=== PATIENT | male | born 1940 | race African-American/Black ===

== ENCOUNTER 2017-12-04 08:53 | Outpatient (CLI) | payer OTHER ==
[~2017-12-04 08:53] MED LIST: AMOX1TAB12 PO; ATIVAN1 M1 PO; CIPRO500 MG PO; CLEOCIN HCL300 MG PO; FOLIC ACID1 MG; GLUCOPHAGE XR750 MG; GLUCOTROL10 MG; LOTREL 5-20 MG1 CAP
== END 2017-12-04 08:59 | disposition home or self-care (01) ==
LOC: LAB 08:53
DX: D55.0 Anemia due to glucose-6-phosphate dehydrogenase [G6PD] deficiency (principal); D51.3 Other dietary vitamin B12 deficiency anemia; D63.8 Anemia in other chronic diseases classified elsewhere; C18.0 Malignant neoplasm of cecum; C61 Malignant neoplasm of prostate; E08.65 Diabetes mellitus due to underlying condition with hyperglycemia; I10 Essential (primary) hypertension; I73.89 Other specified peripheral vascular diseases; D50.8 Other iron deficiency anemias; D51.8 Other vitamin B12 deficiency anemias; E55.9 Vitamin D deficiency, unspecified; K90.89 Other intestinal malabsorption; R97.0 Elevated carcinoembryonic antigen [CEA]; R97.8 Other abnormal tumor markers

== ENCOUNTER → 2017-12-11 10:45 | Outpatient (CLI) | payer OTHER ==
[~2017-12-11 10:45] MED LIST changes: +FORTAMET1000 MG
== END | disposition home or self-care (01) ==
LOC: LAB 10:45 → EDBD 10:45
DX: Z12.11 Encounter for screening for malignant neoplasm of colon (principal); I11.9 Hypertensive heart disease without heart failure; Z85.46 Personal history of malignant neoplasm of prostate; E11.29 Type 2 diabetes mellitus with other diabetic kidney complication

== ENCOUNTER 2017-12-16 10:41 | Outpatient (CLI) | payer OTHER ==
[~2017-12-16 10:41] MED LIST changes: -FORTAMET1000 MG
[2017-12-17] MEDS ORDERED: FORTAMET1000 MG (07:47)
== END 2017-12-16 11:09 | disposition home or self-care (01) ==
LOC: LAB 10:41
DX: Z12.11 Encounter for screening for malignant neoplasm of colon (principal); I11.9 Hypertensive heart disease without heart failure; Z85.46 Personal history of malignant neoplasm of prostate; E11.29 Type 2 diabetes mellitus with other diabetic kidney complication

== ENCOUNTER → 2017-12-17 | Emergency (ER) | payer OTHER ==
[~2017-12-17] VITALS: Ht 180.3 cm; Wt 83.9 kg
[~2017-12-17] MED LIST changes: +FORTAMET1000 MG
== END | disposition home or self-care (01) ==
LOC: ER 07:08 → EMR PED 07:21 → ER 07:21
DX: N39.0 Urinary tract infection, site not specified (principal); N20.0 Calculus of kidney; R10.32 Left lower quadrant pain; R10.31 Right lower quadrant pain

== ENCOUNTER → 2017-12-28 11:46 | Outpatient (CLI) | payer OTHER | END | disposition home or self-care (01) | LOC: LAB 11:46 | DX: E11.51 Type 2 diabetes mellitus with diabetic peripheral angiopathy without gangrene (principal); Z12.11 Encounter for screening for malignant neoplasm of colon; E11.69 Type 2 diabetes mellitus with other specified complication ==

== ENCOUNTER 2017-12-29 11:42 | Outpatient (CLI) | payer OTHER | END 2017-12-29 11:45 | disposition home or self-care (01) | LOC: LAB 11:42 | DX: E11.51 Type 2 diabetes mellitus with diabetic peripheral angiopathy without gangrene (principal); E11.69 Type 2 diabetes mellitus with other specified complication; Z12.11 Encounter for screening for malignant neoplasm of colon ==

== ENCOUNTER 2018-02-09 10:38 | Emergency (ER) | payer OTHER ==
[~2018-02-09] VITALS: Ht 180.3 cm; Wt 84.4 kg
== END 2018-02-09 13:47 | disposition home or self-care (01) ==
LOC: ER 10:38 → EDBD 10:43 → ER 10:43
DX: M54.31 Sciatica, right side (principal); L13.0 Dermatitis herpetiformis

== ENCOUNTER → 2018-04-13 08:13 | Outpatient (CLI) | payer OTHER | END | disposition home or self-care (01) | LOC: LAB 08:13 | DX: D55.0 Anemia due to glucose-6-phosphate dehydrogenase [G6PD] deficiency (principal); D51.3 Other dietary vitamin B12 deficiency anemia; D63.8 Anemia in other chronic diseases classified elsewhere; C18.0 Malignant neoplasm of cecum; C61 Malignant neoplasm of prostate; E08.65 Diabetes mellitus due to underlying condition with hyperglycemia; I10 Essential (primary) hypertension; E73.8 Other lactose intolerance; D50.8 Other iron deficiency anemias; D51.8 Other vitamin B12 deficiency anemias; R97.0 Elevated carcinoembryonic antigen [CEA]; E78.4 Other hyperlipidemia; R91.1 Solitary pulmonary nodule; Z87.891 Personal history of nicotine dependence; A31.0 Pulmonary mycobacterial infection; B39.4 Histoplasmosis capsulati, unspecified; R06.02 Shortness of breath ==

== ENCOUNTER 2018-04-20 11:34 | Outpatient (CLI) | payer OTHER | END 2018-04-20 11:46 | disposition home or self-care (01) | LOC: TOM 11:34 | DX: R91.1 Solitary pulmonary nodule (principal); R06.02 Shortness of breath; Z87.891 Personal history of nicotine dependence ==

== ENCOUNTER 2018-07-14 09:30 | Outpatient (CLI) | payer OTHER | END 2018-07-14 09:37 | disposition home or self-care (01) | LOC: LAB 09:30 | DX: D55.0 Anemia due to glucose-6-phosphate dehydrogenase [G6PD] deficiency (principal); D51.3 Other dietary vitamin B12 deficiency anemia; D63.8 Anemia in other chronic diseases classified elsewhere; C18.0 Malignant neoplasm of cecum; C61 Malignant neoplasm of prostate; E08.65 Diabetes mellitus due to underlying condition with hyperglycemia; E78.4 Other hyperlipidemia; I10 Essential (primary) hypertension; I73.89 Other specified peripheral vascular diseases; D50.8 Other iron deficiency anemias; D51.8 Other vitamin B12 deficiency anemias ==

== ENCOUNTER 2018-08-24 09:13 | Emergency (ER) | payer OTHER ==
[~2018-08-24] VITALS: Ht 177.8 cm; Wt 83.9 kg
== END 2018-08-24 10:15 | disposition home or self-care (01) ==
LOC: ER 09:13
DX: M54.31 Sciatica, right side (principal)

== ENCOUNTER → 2018-08-30 | Emergency (ER) | payer OTHER | END | disposition left against medical advice (07) | LOC: ER 10:21 | DX: Z53.20 Procedure and treatment not carried out because of patient's decision for unspecified reasons (principal) ==

== ENCOUNTER 2018-11-01 11:00 | Outpatient (CLI) | payer OTHER | END 2018-11-01 11:04 | disposition home or self-care (01) | LOC: LAB 11:00 | DX: Z86.010 Personal history of colon polyps (principal); Z85.038 Personal history of other malignant neoplasm of large intestine ==

== ENCOUNTER 2018-11-16 12:13 | Outpatient (CLI) | payer OTHER | END 2018-11-16 12:26 | disposition home or self-care (01) | LOC: LAB 12:13 | DX: E78.2 Mixed hyperlipidemia (principal); E11.29 Type 2 diabetes mellitus with other diabetic kidney complication; C18.0 Malignant neoplasm of cecum; E11.51 Type 2 diabetes mellitus with diabetic peripheral angiopathy without gangrene; Z85.46 Personal history of malignant neoplasm of prostate ==

== ENCOUNTER → 2018-11-19 14:13 | Outpatient (CLI) | payer OTHER | END | disposition home or self-care (01) | LOC: LAB 14:13 | DX: E78.2 Mixed hyperlipidemia (principal); E11.29 Type 2 diabetes mellitus with other diabetic kidney complication; C18.0 Malignant neoplasm of cecum; E11.51 Type 2 diabetes mellitus with diabetic peripheral angiopathy without gangrene; Z85.46 Personal history of malignant neoplasm of prostate ==

== ENCOUNTER 2018-11-29 10:07 | Outpatient (CLI) | payer OTHER | END 2018-11-29 10:23 | disposition home or self-care (01) | LOC: LAB 10:07 | DX: D55.0 Anemia due to glucose-6-phosphate dehydrogenase [G6PD] deficiency (principal); D51.3 Other dietary vitamin B12 deficiency anemia; D63.8 Anemia in other chronic diseases classified elsewhere; C18.0 Malignant neoplasm of cecum; C61 Malignant neoplasm of prostate; E08.65 Diabetes mellitus due to underlying condition with hyperglycemia; I10 Essential (primary) hypertension; D50.8 Other iron deficiency anemias; D51.8 Other vitamin B12 deficiency anemias; R97.0 Elevated carcinoembryonic antigen [CEA]; R97.8 Other abnormal tumor markers; E78.49 Other hyperlipidemia; I73.89 Other specified peripheral vascular diseases ==

== ENCOUNTER 2019-01-27 10:55 | Outpatient (CLI) | payer OTHER | END 2019-01-27 11:49 | disposition home or self-care (01) | LOC: LAB 10:55 | DX: D55.0 Anemia due to glucose-6-phosphate dehydrogenase [G6PD] deficiency (principal); D51.3 Other dietary vitamin B12 deficiency anemia; D63.8 Anemia in other chronic diseases classified elsewhere; C18.0 Malignant neoplasm of cecum; C61 Malignant neoplasm of prostate; E08.65 Diabetes mellitus due to underlying condition with hyperglycemia; I10 Essential (primary) hypertension; I73.89 Other specified peripheral vascular diseases; D50.8 Other iron deficiency anemias; D51.8 Other vitamin B12 deficiency anemias; K90.89 Other intestinal malabsorption; R97.0 Elevated carcinoembryonic antigen [CEA]; R97.8 Other abnormal tumor markers ==

== ENCOUNTER → 2019-03-01 10:44 | Outpatient (CLI) | payer OTHER | END | disposition home or self-care (01) | LOC: LAB 10:44 | DX: E11.51 Type 2 diabetes mellitus with diabetic peripheral angiopathy without gangrene (principal) ==

== ENCOUNTER 2019-03-14 09:26 | Emergency (ER) | payer OTHER ==
[~2019-03-14] VITALS: Ht 180.3 cm; Wt 83.9 kg
== END 2019-03-14 13:00 | disposition home or self-care (01) ==
LOC: ER 09:26
DX: S80.01XA Contusion of right knee, initial encounter (principal); S40.011A Contusion of right shoulder, initial encounter; W18.09XA Striking against other object with subsequent fall, initial encounter; Y93.89 Activity, other specified; Y92.89 Other specified places as the place of occurrence of the external cause; Y99.8 Other external cause status

== ENCOUNTER 2019-05-31 10:19 | Outpatient (CLI) | payer OTHER | END 2019-05-31 10:28 | disposition home or self-care (01) | LOC: LAB 10:19 | DX: D55.0 Anemia due to glucose-6-phosphate dehydrogenase [G6PD] deficiency (principal); D51.3 Other dietary vitamin B12 deficiency anemia; D63.8 Anemia in other chronic diseases classified elsewhere; C18.0 Malignant neoplasm of cecum; C61 Malignant neoplasm of prostate; E08.65 Diabetes mellitus due to underlying condition with hyperglycemia; I10 Essential (primary) hypertension; I73.89 Other specified peripheral vascular diseases; D50.8 Other iron deficiency anemias; K90.89 Other intestinal malabsorption; R97.0 Elevated carcinoembryonic antigen [CEA]; R97.8 Other abnormal tumor markers; R97.20 Elevated prostate specific antigen [PSA] ==

== ENCOUNTER 2019-06-13 12:13 | Outpatient (CLI) | payer OTHER | END 2019-06-13 14:23 | disposition home or self-care (01) | LOC: TOM 12:13 | DX: D55.0 Anemia due to glucose-6-phosphate dehydrogenase [G6PD] deficiency (principal); D51.3 Other dietary vitamin B12 deficiency anemia; D63.8 Anemia in other chronic diseases classified elsewhere; C18.0 Malignant neoplasm of cecum; C61 Malignant neoplasm of prostate; E08.65 Diabetes mellitus due to underlying condition with hyperglycemia ==

== ENCOUNTER 2019-09-27 09:54 | Outpatient (CLI) | payer OTHER | END 2019-09-27 15:00 | disposition home or self-care (01) | LOC: LAB 09:54 | DX: D55.0 Anemia due to glucose-6-phosphate dehydrogenase [G6PD] deficiency (principal); D50.8 Other iron deficiency anemias; D51.3 Other dietary vitamin B12 deficiency anemia; D63.8 Anemia in other chronic diseases classified elsewhere; C18.0 Malignant neoplasm of cecum; I10 Essential (primary) hypertension; I73.89 Other specified peripheral vascular diseases; D51.8 Other vitamin B12 deficiency anemias; E55.9 Vitamin D deficiency, unspecified; K90.89 Other intestinal malabsorption; R97.0 Elevated carcinoembryonic antigen [CEA]; R97.8 Other abnormal tumor markers ==